=== PATIENT | female | born 1945 | race Caucasian/White ===

== ENCOUNTER 2016-12-05 20:50 | Observation (INO) ==
[2016-12-05] MEDS ORDERED: Aspirin 81 MG TAB.CHEW PO ONE (21:11)
--- NOTE | 2016-12-05 21:19 | Emergency Department Note ---
Disposition Clinical Impression: Chest pain Qualifiers: Chest pain type: unspecified Qualified Code(s): R07.9 - Chest pain, unspecified Disposition: Admitted As Inpatient Condition: Fair Time of Disposition: 23:34 Chest Pain HPI - General Chief Complaint: ED Shortness of Breath/Dyspnea Stated Complaint: osmar nausea chest pressure Time Seen by Provider: 12/05/16 21:11 Source: patient Vital Signs Reviewed: Yes Nursing Notes Reviewed: Yes - History of Present Illness HPI Narrative: 71-year-old female with history of CAD, status post stents 2008, presents with shortness of breath, nausea and left-sided tingling in her arm. Patient states that she has had these symptoms for the last hour. This started when she was at home resting. Patient states that she has had no ischemic workup for the last 8 years. She did not take nitroglycerin or aspirin today. She currently has shortness of breath. sHe denies recent fever chills cough Pt complaint: chest pain Onset (ago): minute(s) Duration: constant Onset: during rest Pain Location: left chest Severity scale (1-10): 7 Quality: aching, heaviness Pain Radiation: none Improves with: nothing Worsens with: nothing Associated symptoms: Reports: nausea, dyspnea Treatments prior to arrival chest pain: none - Related Data Home Medications Medication Instructions Recorded Confirmed Atorvastatin 03/20/15 03/20/15 Carvedilol 03/20/15 03/20/15 Isosorbide Mononitrate 03/20/15 03/20/15 Losartan 03/20/15 03/20/15 Plavix 03/20/15 03/20/15 Previous Rx's Medication Instructions Recorded Doxycycline 100 mg PO BID #20 capsule 03/20/15 Ciprofloxacin HCl [Cipro] 500 mg PO BID #20 tab 01/02/16 Hydrocodone/Acetaminophen [[place] 1 tab PO Q4H PRN #10 tab 01/02/16 5-325 Tablet] Ondansetron ODT [Zofran ODT] 4 mg SL Q4HR PRN #20 tab.rapdis 01/02/16 metroNIDAZOLE [Flagyl] 500 mg PO QID #40 tablet 01/02/16 Allergies Allergy/AdvReac Type Severity Reaction Status Date / Time Penicillins Allergy Hives Verified 03/27/15 15:40 Sulfa (Sulfonamide Allergy Hives Verified 03/27/15 15:40 Antibiotics) All systems ED: reviewed and negative except as stated. Constitutional: Denies: fever, chills, weakness Cardiovascular: Reports: as per HPI, chest pain Respiratory: Reports: as per HPI, dyspnea Gastrointestinal: Reports: as per HPI, nausea. Denies: abdominal pain Genitourinary: Denies: urgency, dysuria Musculoskeletal: Denies: back pain, neck pain Neurological: Denies: headache, weakness Psychiatric: Denies: anxiety Chest Pain PMH - Past Medical History Medical history: Reports: coronary artery disease, hyperlipidemia, hypertension Surgical history: Reports: cholecystectomy, , appendectomy Psychiatric history: Reports: anxiety, bipolar COUNSELING CENTER DIRECTOR history: Reports: no COUNSELING CENTER DIRECTOR history - Social History Smoking Status: Current every day smoker Alcohol use: Reports: occasionally Drug use: Reports: none Physical Exam Constitutional: Elderly female in mild distress, clutching her chest. appears uncomfortable HEENT: NCAT, sclera anicteric, PERRLA bilaterally, normal external ears bilaterally, nasal septum nondeviated, average dentition, MMM Neck: normal inspection, neck is supple, trachea midline Resp: normal chest inspection, CTA bilaterally, no resp distress CV: RRR, no m/g/r GI: normal inspection, Soft, NTND, BS presen Back: normal inspection, no tenderness to palpation Neuro: A&O3, no gross motor or sensory deficits bilaterally Skin: No rashes, skin warm, dry, intact - General General appearance: alert, in no apparent distress Course Course Narrative: 71-year-old female with chest pain shortness of breath, appears to be anginal, but high likelihood given hypertension hyperlipidemia and CAD with stents, her EKG is within normal limits we have a troponin chest x-ray basic lab work reassessed tried nitroglycerin for pain and 325 mg HEART SCORE 6. - Reevaluation(s) Reevaluation #1: Trop negative EKG no changes, with chest pain improved after nitroglycerin, admitted to medicine service in stable condition. Time: 23:34 Vital Signs Temperature 97.8 F 12/05/16 20:51 Pulse Rate 89 12/05/16 20:51 Respiratory Rate 18 12/05/16 20:51 Blood Pressure 116/62 12/05/16 20:51 O2 Sat by Pulse Oximetry 100 12/05/16 20:51 Temperature 97.8 F 12/05/16 20:51 Pulse Rate 76 12/05/16 22:55 Respiratory Rate 14 12/05/16 22:55 Blood Pressure 98/57 12/05/16 22:55 O2 Sat by Pulse Oximetry 95 12/05/16 22:55 Oxygen Delivery Oxygen Delivery Room Air Chest Pain - MDM Narrative Medical decision making narrative: 71-year-old female chest pain, relieved with nitroglycerin history of CAD, given the medicine service heart score of 6, stable condition at the time ED disposition - Differential Diagnosis Likely: pneumothorax, stable angina, unstable angina pectoris, atypical chest pain - Medical Records Medical records reviewed: Yes I reviewed the patient's medical records. - Lab Data Lab results reviewed: Yes I reviewed the patient's lab results. Result diagrams: 12/05/16 21:20 12/05/16 21:20 Lab Results 12/05/16 12/05/16 12/05/16 Range/Units 21:20 21:20 21:20 WBC 11.3 H (4.3-11.1) K/mcL RBC 4.42 (3.82-4.97) M/mcL Hgb 13.5 (11.5-15.4) g/dL Hct 41.7 (35.3-44.9) % MCV 94.3 (83.0-100.0) fL MCH 30.5 (28.0-33.3) pg MCHC 32.4 (31.6-35.5) g/dL RDW 13.0 (11.5-14.5) % Plt Count 283 (140-400) K/mcL MPV 11.6 (9.4-12.4) fL Immature Gran % 0.4 (0-4) % Seg Neutrophils % 58.0 % Lymphocytes % 30.2 % Monocytes % 8.4 % Eosinophils % 2.6 % Basophils % 0.4 % Neutrophils # 6.6 (1.6-8.9) K/mcL Lymphocytes # 3.4 (0.6-4.6) K/mcL Monocytes # 1.0 (0.0-1.3) K/mcL Eosinophils # 0.3 (0.0-0.6) K/mcL Basophils # 0.0 (0.0-0.2) K/mcL Immature Plt Fraction 6.2 H (1.1-6.1) % PT 10.3 (9.4-12.1) Seconds INR 1.0 APTT 29.3 (26.0-36.0) Seconds Sodium (136-145) mEq/L Potassium (3.5-4.5) mEq/L Chloride (98-109) mEq/L Carbon Dioxide (19-29) mEq/L BUN (7-20) mg/dL Creatinine (0.57-1.11) mg/dL Est GFR ( Amer) (> 60) Est GFR (Non-Af Amer) (> 60) BUN/Creatinine Ratio (6-26) Glucose (70-99) mg/dL Calculated Osmolality (280-300) Calcium (8.6-10.8) mg/dL Troponin I (0-0.03) ng/mL B-Natriuretic Peptide 71 (0-100) pg/mL 12/05/16 12/05/16 Range/Units 21:20 21:20 WBC (4.3-11.1) K/mcL RBC (3.82-4.97) M/mcL Hgb (11.5-15.4) g/dL Hct (35.3-44.9) % MCV (83.0-100.0) fL MCH (28.0-33.3) pg MCHC (31.6-35.5) g/dL RDW (11.5-14.5) % Plt Count (140-400) K/mcL MPV (9.4-12.4) fL Immature Gran % (0-4) % Seg Neutrophils % % Lymphocytes % % Monocytes % % Eosinophils % % Basophils % % Neutrophils # (1.6-8.9) K/mcL Lymphocytes # (0.6-4.6) K/mcL Monocytes # (0.0-1.3) K/mcL Eosinophils # (0.0-0.6) K/mcL Basophils # (0.0-0.2) K/mcL Immature Plt Fraction (1.1-6.1) % PT (9.4-12.1) Seconds INR APTT (26.0-36.0) Seconds Sodium 143 (136-145) mEq/L Potassium 3.6 (3.5-4.5) mEq/L Chloride 108 (98-109) mEq/L Carbon Dioxide 23 (19-29) mEq/L BUN 20 (7-20) mg/dL Creatinine 1.05 (0.57-1.11) mg/dL Est GFR ( Amer) > 60 (> 60) Est GFR (Non-Af Amer) 52 L (> 60) BUN/Creatinine Ratio 19 (6-26) Glucose 125 H (70-99) mg/dL Calculated Osmolality 300 (280-300) Calcium 9.8 (8.6-10.8) mg/dL Troponin I 0.00 (0-0.03) ng/mL B-Natriuretic Peptide (0-100) pg/mL - Radiology Data Radiology results reviewed: Yes I reviewed the patient's radiology results. Chest X-Ray 12/05/16 21:11 IMPRESSION: No acute abnormality. D/ / Rommel Baron / Rommel Baron Interpreting Provider: Rommel Baron - EKG Data EKG attestation: Yes I reviewed and interpreted this EKG. EKG shows normal: sinus rhythm Rate: normal (86 bpm [place] 156 QRS [address] segment elevations or depressions) Rhythm: NSR [place]/QRS: normal Interpretation: unchanged when compared to prior tracing (date) - Core Measures AMI Core Measures Followed: Yes Measure Exclusions: not indicated Heart Score - Score History: Moderately Suspicious EKG: Non Specific repolarisation Disturbance Age: Greater than 65 Risk Factors: Equal/Greater than 3 risk factor or history of atherosclerotic disease Troponin: Less than normal limit HEART Score Total: 6 Attestation Statement - Attestation Attestation: I, Hernan Martinez MD, personally evaluated this patient and discussed their management with the resident physician. I reviewed the resident's note and agree with the documented findings, medical decision making, and plan of care. 71-year-old female presents to the emergency department with a complaint of some vague left-sided chest discomfort which started about one hour prior to arrival. Onset of symptoms while at rest. She also complains of shortness of breath and nausea associated with the chest pain. Some numbness and tingling in the left arm. Patient has a prior history of coronary artery stent and states these symptoms feel the same as when she got the stent. On examination patient is a well-developed well-nourished well-appearing elderly female in no acute distress. She is alert and oriented 3. There is no cyanosis or diaphoresis. Chest is nontender to palpation. Breath sounds are clear and equal bilaterally. Heart regular rate and rhythm. Abdomen soft and nontender with normal bowel sounds. Labs reviewed. Troponin 0.00. No acute changes on EKG. Chest x-ray negative. The hospitalist, Dr. Sims, was consulted and accepted admission of the patient.
[2016-12-05 21:28] LABS: Basophils % 0.4 %; Eosinophils # 0.3 K/mcL (0.0-0.6); Eosinophils % 2.6 %; Hematocrit 41.7 % (35.3-44.9); Hemoglobin 13.5 g/dL (11.5-15.4); Immature Granulocytes % 0.4 % (0-4); Immature Platelets 6.2 % (1.1-6.1); Lymphocytes # 3.4 K/mcL (0.6-4.6); Lymphocytes % 30.2 %; Mean Corpuscular HGB Conc 32.4 g/dL (31.6-35.5); Mean Corpuscular Hemoglobin 30.5 pg (28.0-33.3); Mean Corpuscular Volume 94.3 fL (83.0-100.0); Mean Platelet Volume 11.6 fL (9.4-12.4); Monocytes % 8.4 %; Neutrophils # 6.6 K/mcL (1.6-8.9); Platelet Count 283 K/mcL (140-400); Red Blood Count 4.42 M/mcL (3.82-4.97)
[2016-12-05] MEDS: Nitroglycerin 0.4 MG TAB.SUBL SL ONE ×2 (21:31→21:41)
[2016-12-05 21:40] LABS: BUN/Creatinine Ratio 19 (6-26); Blood Urea Nitrogen 20 mg/dL (7-20); Calcium 9.8 mg/dL (8.6-10.8); Carbon Dioxide 23 mEq/L (19-29); Chloride 108 mEq/L (98-109); Glucose 125 mg/dL (70-99); Osmolality,Calculated 300 (280-300); Potassium 3.6 mEq/L (3.5-4.5); Sodium 143 mEq/L (136-145); eGFR For African Americans > 60 (> 60); eGFR For Non-African Americans 52 (> 60)
[2016-12-05 21:43] LABS: Prothrombin Time 10.3 Seconds (9.4-12.1)
[2016-12-05 21:46] LABS: Activated Partial Thrombo Time 29.3 Seconds (26.0-36.0)
[2016-12-06] MEDS ORDERED: Ondansetron 4 MG/2 ML VIAL IVP PRN (00:12)
[2016-12-06] MEDS ORDERED: Acetaminophen 325 MG TABLET PO PRN (00:12)
[2016-12-06] MEDS ORDERED: Naloxone 0.4 MG/ML INJ IVP PRN (00:12)
[2016-12-06] MEDS ORDERED: Nitroglycerin 0.4 MG TAB.SUBL SL PRN (00:14)
--- NOTE | 2016-12-06 01:38 | Internal Med History&Physical ---
Date of Encounter: 12/06/16 Time of Encounter: 01:36 Assessment and Plan (1) Chest pain Current visit: Yes Status: Acute Patient has chest pressure that is heaviness in sensation on the left side of her chest in the precordial region with tingling and numbness in her left arm that happened at rest and resolved by itself. It was associated with nausea and shortness of breath. She has a history of coronary artery disease which was found with a negative stress test and subsequent left heart catheterization which required placement of a stent in 2008. The patient continues to smoke cigarettes. Reproducible tenderness in the midline but not in the precordial region. Pain resolved with nitroglycerin. EKG does not reveal any ST-T wave changes. Troponin has been negative. Patient will be placed under observation on telemetry. Cycle cardiac enzymes. Will request cardiology consult to evaluate the patient regarding further course of management. Nitroglycerin sublingual as needed for chest pain. Qualifiers: Chest pain type: precordial pain Qualified Code(s): R07.2 - Precordial pain (2) CAD (coronary artery disease) Current visit: Yes Status: Chronic As above. Resume aspirin, Plavix, statin and beta gena. Patient follows up with cardiology as an outpatient. Qualifiers: Coronary Disease-Associated Artery/Lesion type: [place] artery [place] vs. transplanted heart: [place] heart Associated angina: without angina Qualified Code(s): I25.10 - Atherosclerotic heart disease of [place] coronary artery without angina pectoris (3) HTN (hypertension) Current visit: Yes Status: Chronic Controlled blood pressure. Continue home medications. Qualifiers: Hypertension type: essential hypertension Qualified Code(s): I10 - Essential (primary) hypertension (4) Tobacco abuse Current visit: Yes Status: Chronic Patient counseled at length regarding the need for smoking cessation. She states that she is willing to quit and is currently actively working towards the same. Internal Medicine - H&P: HPI Chief complaint: Chest pressure Admitted From: Emergency Dept Plans for Post Hospital Care: Home History of present illness: Ms. Romel Ruby is a 71 year old female presented to the emergency room due to sudden onset chest pressure that happened last night at 9 PM as the patient was getting ready to go to sleep. She rates the pain as 8/10 in intensity on the left side of her chest which is a sensation of heaviness. She also reports associated tingling and numbness in her left hand. No aggravating factors although the pain was relieved with nitroglycerin. The pain persisted for 5-10 minutes and resolved by itself. The pain was associated with shortness of breath, nausea and lightheadedness. She denies any palpitations, sweating, cough or wheezing. She denies any abdominal pain, diarrhea, constipation. She denies any swelling in her legs, rash or bruising. She states that she continues to smoke 5-10 cigarettes daily. She is followed by Dr. Lopez from cardiology whom she last saw 2 weeks ago. Her last stress test was 2 years ago. She denies any recent appetite changes or weight changes. Past Med Surg Social Fam HX - Past Medical History Attestation: Yes The following information was validated with the patient. Source: patient Medical history: coronary artery disease, hyperlipidemia, hypertension Psychiatric history: anxiety, bipolar - Past Surgical History Surgical History: cholecystectomy, , appendectomy - Social History Smoking Status: Current every day smoker Packs per day: 1 Smokeless Tobacco Status: No Alcohol use: occasionally Drug use: none - Family History Maternal Grandmother Hx Family Cardiac Disorders: No Hx Family Respiratory Disorders: No Hx Family Cancer: No Hx Family GI Disorders: No Hx Family Genitourinary Disorders: No Hx Family Endocrine Disorder: Yes (DM) Hx Family Musculoskeletal Disorders: No Hx Family Neuromuscular Disorders: No Hx Family Neurologic Disorders: No Hx Family HEENT Disorders: No Hx Family Autoimmune Disorders: No Hx Family Reproductive Disorders: No Hx Family Psychosocial Disorders: No Hx Family Medical Disorders: No Internal Medicine - H&P: Meds Atorvastatin 03/20/15 [History] Carvedilol 03/20/15 [History] Doxycycline 100 mg PO BID #20 capsule 03/20/15 [Rx] Isosorbide Mononitrate 03/20/15 [History] Losartan 03/20/15 [History] Plavix 03/20/15 [History] Ciprofloxacin HCl [Cipro] 500 mg PO BID #20 tab 01/02/16 [Rx] Hydrocodone/Acetaminophen [[place] 5-325 Tablet] 1 tab PO Q4H PRN #10 tab [Rx] Ondansetron ODT [Zofran ODT] 4 mg SL Q4HR PRN #20 tab.rapdis 01/02/16 [Rx] metroNIDAZOLE [Flagyl] 500 mg PO QID #40 tablet 01/02/16 [Rx] Allergies Penicillins Allergy (Verified 03/27/15 15:40) Hives Sulfa (Sulfonamide Antibiotics) Allergy (Verified 03/27/15 15:40) Hives All Systems PM: A 10-system review of systems was performed and is negative for pertinent findings except as documented above in the HPI. Review of systems: 10 systems reviewed and negative except as mentioned in the HPI - Constitutional Vitals: Temp Pulse Resp BP Pulse Ox 98.2 F 73 18 98/55 96 12/06/16 00:45 12/06/16 00:45 12/06/16 00:45 12/06/16 00:45 12/06/16 00:45 Exam: Gen.: Lying in bed. No acute distress. Eyes: Pupils equal, round and reactive to light. Extraocular muscles intact. ENT: Moist mucous membranes. No oropharyngeal erythema or discharge. Chest: Clear to auscultation bilaterally. No adventitious sounds present. Reproducible chest wall tenderness present in the midline. No precordial chest wall tenderness. CVS: First and second heart sounds present. No murmurs, rubs or gallops. Abdomen: Soft, nontender, nondistended. Bowel sounds present. No hepatosplenomegaly. Skin: No decubitus ulcers appreciated. PEDIATRIC PHYSICAL THERAPY ASSISTANT: No focal neuro deficits present. Psychiatric: Alert, awake and oriented to time, place and person. Lymphatic system: No lymphadenopathy appreciated Internal Med - H&P Results - Labs CBC & Chem 7: 12/05/16 21:20 12/05/16 21:20 - EKG Data -: EKG Interpreted by Myself EKG shows normal: sinus rhythm Rate: normal - EKG Data Prior EKG available for review: yes When compared to previous EKG: there is no significant change - Diagnostic Studies Chest x-ray Status: image reviewed by me (No acute abnormalities detected)
[2016-12-06] MEDS ORDERED: Aspirin Enteric Coated 81 MG Tablet PO SCH (09:00)
--- NOTE | 2016-12-06 12:02 | Electrocardiograph Report ---
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
[2016-12-06 12:42] VITALS: BP 93/59
--- NOTE | 2016-12-06 13:17 | Event Note ---
Date of Encounter: 12/06/16 Time of Encounter: 13:10 - Cardiology Event Note I went to room to see patient for evaluation of CP. Negative ST 03/2015. Per RN , patient left AMA. Unable to complete consult. Laboratory Tests 12/05/16 12/06/16 12/06/16 21:20 01:02 04:51 Troponin I 0.00 0.01 0.00
--- NOTE | 2016-12-06 14:57 | Event Note ---
Date of Encounter: 12/06/16 Time of Encounter: 10:50 Patient was seen and examined about 10:55 AM. She appeared to be agitated when I spoke with her. I was standing near the window she was lying in a position facing the window, however was hidden under the blankets and did not open her eyes. She said she is sick of repeating her story and is sick of waiting. She reports midsternal chest pressure, shortness of breath, nausea, radiation to left shoulder with left arm numbness. It started while at rest. She said she arrived at the emergency room at about 12:30 AM, it had started approximately 30 minutes prior to arrival. She said it was relieved with nitroglycerin and aspirin in the emergency department and she has been pain- free since that time. She has a history of coronary artery stent 2008, 1 other episode of chest pain like this in 2014. She was not seen at that time. I told patient I would attempt to expedite her visit and asked that I could do to make it better for her. She said she just wanted to go outside and smoke a cigarette. I told her that I could not authorize that, but I did tell her that I would speak with cardiology, and we would try to get her a meal tray since she had not eaten since before coming to the emergency department last night. At some point, she was told that she would have a stress test, she was upset when it had not been ordered and that a cardiology consult has been ordered instead. Cardiology and I had discussed her case, he was preparing to see her when I was informed that she was going to leave AMA. Her physical exam was unremarkable, chest x-ray was negative, troponins were negative. EKG was negative for any ST changes.
== END 2016-12-06 13:07 | disposition left against medical advice (07) ==
LOC: 3BNU 20:50 → EMEROO 20:50 → 3BNU 12-06 00:35
PROVIDERS: ADMIT Internal Medicine Sleep Medicine; ATTEND Registered Nurse

== ENCOUNTER 2017-02-25 08:40 | Inpatient (IN) ==
--- NOTE | 2017-02-24 21:45 | Discharge Summary ---
<Marycarmen Philippe - Last Filed: 02/24/17 21:41> Date of Encounter: 02/24/17 - Discharge Diagnosis (1) Arthritis of knee, left Priority: Primary Status: Acute (2) Status post total knee replacement, left Priority: Primary Status: Acute (3) CAD (coronary artery disease) Priority: Secondary Status: Chronic Qualifiers: Coronary Disease-Associated Artery/Lesion type: unspecified vessel or lesion type [place] vs. transplanted heart: [place] heart Associated angina: without angina Qualified Code(s): I25.10 - Atherosclerotic heart disease of [place] coronary artery without angina pectoris (4) Tobacco use Priority: Secondary Status: Chronic (5) HTN (hypertension) Priority: Secondary Status: Chronic Qualifiers: Hypertension type: essential hypertension - Discharge Medications Home Medications: Alendronate Sodium [Fosamax] 70 mg PO [place] 12/06/16 [History] Atorvastatin [Lipitor] 10 mg PO DAILY 12/06/16 [History] Carvedilol [Coreg] 6.25 mg PO BID 12/06/16 [History] Clopidogrel [Plavix] 75 mg PO DAILY 12/06/16 [History] Diltiazem HCl [Diltiazem ER] 120 mg PO DAILY 12/06/16 [History] Isosorbide MONOnitrate (24 HR) [Imdur] 30 mg PO DAILY 12/06/16 [History] Multivit-Min/Iron/Folic/Lutein [Centrum Silver Women Tablet] 1 each PO DAILY [History] Aspirin Enteric Coated [Aspirin EC] 325 mg PO DAILY #21 tablet. 02/24/17 [Rx] Aspirin [Lo-Dose Aspirin EC] 81 mg PO DAILY 02/25/17 [History] Losartan Potassium [Cozaar] 100 mg PO DAILY 02/25/17 [History] Allergies/Adverse Reactions: 3 Allergy/AdvReac Type Severity Reaction Status Date / Time Penicillins Allergy Hives Verified 02/25/17 09:37 Sulfa (Sulfonamide Allergy Hives Verified 02/25/17 09:37 Antibiotics) Oxycodone [From Percocet] AdvReac SEE COMMENT Verified 02/25/17 09:37 propoxyphene AdvReac SEE COMMENT Verified 02/25/17 09:37 [From Ileana] Primary care physician: Ramiro Gillette CNP - Patient Status Disposition: Home Health Service Condition: Good - Discharge Instructions Follow Up With: Ramiro Gillette CNP [Primary Care Provider] - - Hospital Course Hospital course: Ms. Romel Ruby is a 71 year old female - Time Spent with Patient Total time spent providing and/or coordinating discharge services: <RicardoMichelepraveena Shieldsh - Last Filed: 02/26/17 06:25> Date of Encounter: 02/26/17 Time of Encounter: 06:24 - Discharge Diagnosis (1) CAD (coronary artery disease) Priority: Secondary Status: Chronic Qualifiers: Coronary Disease-Associated Artery/Lesion type: [place] artery [place] vs. transplanted heart: [place] heart Associated angina: without angina Qualified Code(s): I25.10 - Atherosclerotic heart disease of [place] coronary artery without angina pectoris (2) HTN (hypertension) Priority: Secondary Status: Chronic Qualifiers: Hypertension type: unspecified Qualified Code(s): I10 - Essential (primary ) hypertension (3) Tobacco abuse Priority: Secondary Status: Chronic (4) Arthritis of knee, left Priority: Primary Status: Chronic (5) Status post total knee replacement, left Priority: Primary Status: Acute (6) CAD (coronary artery disease) Priority: Secondary Status: Chronic Qualifiers: Coronary Disease-Associated Artery/Lesion type: unspecified vessel or lesion type [place] vs. transplanted heart: [place] heart Associated angina: without angina Qualified Code(s): I25.10 - Atherosclerotic heart disease of [place] coronary artery without angina pectoris Primary care physician: Ramiro Gillette CNP - Patient Status Functional capacity at discharge: uses cane/walker Overall status at discharge: patient is progressing back to baseline - Hospital Course Hospital course: Ms. Romel Ruby is a 71 year old female The patient had an uneventful postoperative course. They received antibiotics and physical therapy and were discharged in stable condition. There will follow -up in the office in 2 weeks. Status post left total knee replacement - Time Spent with Patient Total time spent providing and/or coordinating discharge services:
--- NOTE | 2017-02-24 21:50 | Physician Discharge Referral ---
<Marycarmen Philippe - Last Filed: 02/24/17 21:48> Home Health/Hosp Referral Info Transfer to: Home Health Provider in Charge Post Discharge: PCP - Diagnosis (1) Arthritis of knee, left Priority: Primary Status: Acute (2) Status post total knee replacement, left Priority: Primary Status: Acute (3) CAD (coronary artery disease) Priority: Secondary Status: Chronic (4) Tobacco use Priority: Secondary Status: Chronic (5) HTN (hypertension) Priority: Secondary Status: Chronic - Respiratory Orders None Smoking Cessation: Smoking cessation has been advised. For more information, call the [place] Tobacco Quit Line at 6-529-PLFM-NOW. - Dressing/Wound Care Type of Dressing/Treatments w/Frequency: Opsite dressing, leave intact until first post-operative visit. If dressing becomes >50% saturated, contact office, remove dressing and place appropriate dressing in its place. Do not allow for dressing to get wet. Balaji in place, plan to remove at post-operative day #14-16. Total Joint Precautions x 6 weeks Apply cold therapy wrap 3-6x/day for 20 minutes at a time. Encourage ambulation throughout the day Use Incentive spirometer 10x/hour. Elevate affected extremity above heart as tolerated. Brace: Wear knee immobilizer at night x 2 weeks. - Diet/Nutrition Diet/Nutrition Orders: Regular - Activity Activity Orders: Up ad bethany, Ambulate - Services Needed Following services are medically necessary services: Nursing, Home Health Aide, Physical Therapy, Occupational Therapy - Transfer Medications Home Medications: Alendronate Sodium [Fosamax] 70 mg PO HILTON 12/06/16 [History] Atorvastatin [Lipitor] 10 mg PO DAILY 12/06/16 [History] Carvedilol [Coreg] 6.25 mg PO BID 12/06/16 [History] Clopidogrel [Plavix] 75 mg PO DAILY 12/06/16 [History] Diltiazem HCl [Diltiazem ER] 120 mg PO DAILY 12/06/16 [History] Isosorbide MONOnitrate (24 HR) [Imdur] 30 mg PO DAILY 12/06/16 [History] Multivit-Min/Iron/Folic/Lutein [Centrum Silver Women Tablet] 1 each PO DAILY [History] Aspirin Enteric Coated [Aspirin EC] 325 mg PO DAILY #21 tablet. 02/24/17 [Rx] Aspirin [Lo-Dose Aspirin EC] 81 mg PO DAILY 02/25/17 [History] Losartan Potassium [Cozaar] 100 mg PO DAILY 02/25/17 [History] Allergies/Adverse Reactions: 3 Allergy/AdvReac Type Severity Reaction Status Date / Time Penicillins Allergy Hives Verified 02/25/17 09:37 Sulfa (Sulfonamide Allergy Hives Verified 02/25/17 09:37 Antibiotics) Oxycodone [From Percocet] AdvReac SEE COMMENT Verified 02/25/17 09:37 propoxyphene AdvReac SEE COMMENT Verified 02/25/17 09:37 [From Darvocet-N] Certification: Further, I certify that my clinical findings support that this patient is homebound (i.e. absences from home require considerable and taxing effort and are for medical reasons or hindu services or infrequently or short duration when for other reasons) because: Homebound Reason: Post-surgery restriction and or conditions limit ability to leave home Attestation: My signature below is to certify that this patient is under my care and that I, or nurse practitioner, or a physician's drilling assistant working with me, has a face-to -face encounter with this patient. <Michele Silva - Last Filed: 02/26/17 06:24> - Diagnosis (1) CAD (coronary artery disease) Status: Chronic (2) HTN (hypertension) Status: Chronic (3) Tobacco abuse Status: Chronic (4) Arthritis of knee, left Status: Chronic (5) Status post total knee replacement, left Status: Acute (6) CAD (coronary artery disease) Status: Chronic - Respiratory Orders Smoking Cessation: Smoking cessation has been advised. For more information, call the [place] Tobacco Quit Line at 3-459-JESI-NOW. Certification: Further, I certify that my clinical findings support that this patient is homebound (i.e. absences from home require considerable and taxing effort and are for medical reasons or hindu services or infrequently or short duration when for other reasons) because: Attestation: My signature below is to certify that this patient is under my care and that I, or nurse practitioner, or a physician's drilling assistant working with me, has a face-to -face encounter with this patient.
[2017-02-25] MEDS ORDERED: Gabapentin 300 MG CAPSULE PO ONE (09:05)
[2017-02-25] MEDS ORDERED: Famotidine 20 MG/2 ML VIAL IVP ONE (09:05)
[2017-02-25] MEDS ORDERED: Ringers Solution, Lactated 1,000 ML IVC SCH ×2 (09:15→12:49)
--- NOTE | 2017-02-25 09:15 | History & Physical Report ---
Date of Encounter: 02/25/17 Time of Encounter: 09:15 24 Hour HP Update - Instructions Instructions: If the History and Physical is less than 30 days old and was completed prior to A.M. admission and or procedure and has NOT been updated on calendar day of procedure please complete this update prior to performing procedure. - Update Patient reports changes in Medical Condition: No Changes in examination, assessment, or condition: No Changes in Medication: No Preop tests/diagnostics Reviewed: Yes Surgery Remains Indicated: Yes Consent for Planned Operative Procedure(s) Verified: Yes - Pre-Operative Checklist Preoperative Checklist Indicated: No Prophylactic Antibiotic Ordered: Yes Is VTE Prophylaxis Indicated?: Yes
[2017-02-25] MEDS ORDERED: Clindamycin 900 MG/50 ML 900 MG/50 ML IV.SOLN IVPB ONE (09:18)
[2017-02-25] MEDS ORDERED: Albuterol 2.5 MG/3 ML NEBULIZER IH ONE (09:18)
[2017-02-25] MEDS ORDERED: *HR* FentaNYL (PF) 100 MCG/2 ML VIAL ONE (09:38)
[2017-02-25] MEDS ORDERED: *HR* Midazolam HCl 2 MG/2 ML VIAL ONE (09:38)
[2017-02-25] MEDS ORDERED: Ondansetron 4 MG/2 ML VIAL ONE (09:38)
[2017-02-25] MEDS ORDERED: *HR* Propofol 200 MG/20 ML VIAL IVP ONE (09:38)
[2017-02-25] MEDS ORDERED: Dexamethasone 4 MG/ML VIAL ONE ×2 (09:38→10:14)
--- NOTE | 2017-02-25 09:46 | Anesthesia Evaluation PreOp ---
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 History: Denies Any Significant HX Other Medical History: Denies Any Significant HX Anesthesia History: No Prior Anesthetic Complications : No Alcohol Use: occasionally Drug use: none Medications and Allergies Alendronate Sodium [Fosamax] 70 mg PO HILTON 12/06/16 [History] Atorvastatin [Lipitor] 10 mg PO DAILY 12/06/16 [History] Carvedilol [Coreg] 6.25 mg PO BID 12/06/16 [History] Clopidogrel [Plavix] 75 mg PO DAILY 12/06/16 [History] Diltiazem HCl [Diltiazem ER] 120 mg PO DAILY 12/06/16 [History] Isosorbide MONOnitrate (24 HR) [Imdur] 30 mg PO DAILY 12/06/16 [History] Multivit-Min/Iron/Folic/Lutein [Centrum Silver Women Tablet] 1 each PO DAILY [History] Aspirin Enteric Coated [Aspirin EC] 325 mg PO DAILY #21 tablet. 02/24/17 [Rx] OxyCODONE Immed Rel [Roxicodone 5 MG] 5 - 10 mg PO Q6HR PRN #40 tablet 02/24/17 [Rx] Aspirin [Lo-Dose Aspirin EC] 81 mg PO DAILY 02/25/17 [History] Losartan Potassium [Cozaar] 100 mg PO DAILY 02/25/17 [History] 3 Allergy/AdvReac Type Severity Reaction Status Date / Time Penicillins Allergy Hives Verified 02/25/17 09:37 Sulfa (Sulfonamide Allergy Hives Verified 02/25/17 09:37 Antibiotics) Oxycodone [From Percocet] AdvReac SEE COMMENT Verified 02/25/17 09:37 propoxyphene AdvReac SEE COMMENT Verified 02/25/17 09:37 [From Darvocet-N] - Meds/Allergy Pre-op Review Medications Reviewed: Yes Allergies Reviewed: Yes Beta Blockers on Current Med List: Yes (Took Coreg today 0800) Anesthesia Results - Labs Laboratory Tests 02/06/17 02/06/17 13:58 13:58 Hgb 13.4 Hct 43.2 Plt Count 255 Sodium 141 Potassium 4.8 H BUN 19 Creatinine 0.93 - Imaging EKG: report reviewed (SR) Additional studies: Stress Test Negative EF 70% Anesthesia Exam O2 Sat Height 1.57 m Height 1.57 m Weight 66.678 kg Weight 66.678 kg O2 Sat by Pulse Oximetry 100 Vital Signs Temp Pulse Resp BP Pulse Ox 97.1 F L 75 18 104/62 100 02/25/17 09:22 02/25/17 09:22 02/25/17 09:22 02/25/17 09:22 02/25/17 09:22 Height: 5'2 Weight: 147 lbs NPO (# of Hours): MN Pain Scale: 0 - HEENT Pupil (Motor): Pupils equal, EOMI Mallampati: II Teeth: Normal Oral Opening: Greater than 3 - MILL DRESSER LOC: Oriented MILL DRESSER Motor: Normal RUE, Normal LUE, Normal RLE, Normal LLE, Normal Face MILL DRESSER Sensory: Normal: RUE, LUE, RLE, LLE, Face - Cardiac Rhythm: Regular Murmur: None JVD: No Carotid Bruit: No - Pulmonary Breath Sounds: bilateral Clear Respiratory Effort: Symmetrical Anesthesia Assess/Plan ASA Score: 3 (CAD HTN Tobacco) Modified [place] Scale for Level of Consciousness: Cooperative, oriented, and tranquil Anesthetic Plan: General, Regional Monitoring Plan: Standard Monitors Recovery Plan: PACU (Discussed GA and RA, agrees to proceed)
[2017-02-25] MEDS ORDERED: Ondansetron 4 MG/2 ML VIAL IVP PRN ×2 (09:48→12:49)
[2017-02-25] MEDS ORDERED: *HR* HYDROmorphone (PF) 1 MG/ML SYRINGE IVP PRN (09:48)
[2017-02-25] MEDS ORDERED: *HR* Meperidine 25 MG/ML SYRINGE IVP PRN (09:48)
[2017-02-25] MEDS ORDERED: Naloxone 0.4 MG/ML INJ IVP PRN ×2 (09:48→12:49)
[2017-02-25] MEDS ORDERED: Bupivacaine-MPF 0.25% 10 ML VIAL ONE (10:01)
[2017-02-25] MEDS ORDERED: Lidocaine -MPF 2% 5 ML VIAL ONE (10:01)
[2017-02-25] MEDS ORDERED: Tetracaine/PF 20 MG/2 ML AMPUL ONE (10:02)
--- NOTE | 2017-02-25 10:39 | Anesthesia Procedures ---
Date of Encounter: 02/25/17 Time of Encounter: 09:45 Procedures: Anesthesia - Nerve Block Procedure Date: 02/25/17 Time: 10:20 Pre-op Diagnosis: Left Knee OA Surgical Procedure: Left TKA Checklist: Correct Patient Identifier Correct side: Left Blood Thinner: Yes (Plavix) Monitor Applied: EKG, BP, Pulse Oximetry Supplemental Oxygen via Nasal Cannula (L/min): 2 Sedation: Versed (mg): 2 Sedation: Fentanyl (mcg): 100 Indication: Post Op Analgesia Pre-op Neuro Deficits: No Block Type: Femoral, Other (Sciatic) Catheter placed: No Depth at skin (cm): 2 Sterile Technique: Yes Ultrasound used: Yes Anatomy identified: Yes Visual spread of Local: Yes Neuro Stimulation: Yes Nerve Stimulator Range: >0.4 - 0.6 mA Blood on Needle Aspiration: No Smooth Injection of Local: Yes Pain with Injection of Local: No Prep: Chlorhexadine Needle: 22 x 50 mm Stimuplex Local: Tetracaine (40), Other (Bupivacaine 0.5%, Dexamethasone 4 mg) Volume (cc): 40cc Fem, 20cc Scia 0.2% Number of Attempts: 1 Complications: None/effective block Vitals: Vital Signs/O2 Sat/Glucose, Most Current Temp Pulse Resp BP Pulse Ox 02/25/17 10:25 76 15 109/72 96 02/25/17 09:22 97.1 F L 75 18 104/62 100
[2017-02-25] MEDS ORDERED: *HR* Phenylephrine 10 MG/ML VIAL ONE (10:45)
[2017-02-25] MEDS ORDERED: EPHEDrine 50 MG/ML VIAL ONE (11:09)
--- NOTE | 2017-02-25 11:16 | Orthopedic Operative Note ---
Date of procedure: 02/25/17 Pre-op diagnosis: Left knee arthritis Post-op diagnosis: same Procedure: Procedure: Left Total knee replacement Estimated blood loss: 200 cc Hardware: Metal and polyethylene replacement. Arthrex Femur: 4 Tibia:3 PS insert: 10 Patella:37 Exam Under anesthesia: Full flexion and extension no varus valgus instability. Procedural Notes: Grade 4 arthritic changes medial and lateral compartment, grade 3 arthritic changes patellofemoral joint. Operative procedure: The patient was brought to the operating room and placed on the operating room table. After general anesthesia was administered the operative knee was examined. Findings were noted in the exam under anesthesia. The operative extremity was prepped and draped in sterile surgical fashion. The patient received IV antibiotics prior to skin incision. A standard midline incision was made centered over the patella. The incision was made through the skin and subcutaneous tissue. A medial parapatellar tendon approach was performed. Care was taken to preserve tissue along the medial aspect of the patella. And to protect the patella tendon. The deep MCL was released off the medial tibia. The infra patella fat pad was excised. Knee was brought into flexion. Grade 4 arthritic changes medial and lateral compartment, grade 3 arthritic changes patellofemoral joint. The entry hole was made for the intramedullary femoral guide. The guide was seated in 6 degrees of valgus. Anterior cut was made followed by the distal cut. The ACL the PCL the medial and the lateral menisci were excised. The tibia was subluxed forward. The entry hole was made for the intramedullary tibial guide. Guide was seated to resect 2 mm off the more abnormal side. The knee was brought into flexion the distal femur was sized to a 4. The femoral guide was seated, the anterior cut was made followed by the posterior condylar cut, followed by the chamfer cuts. The finishing guide was seated the box cut was made and the lug holes were drilled. The tibia was sized to a 3, the tibial tray was seated and prepared with the large drill followed by the fin cutter. Trial reduction revealed full extension no varus valgus instability with the appropriate 10 PS Margret. The patella was everted and cut was made at the level of the insertion of the quadriceps and patella tendon. The patella was too a 37 sized the guide was seated and the lug holes are drilled. Trial reduction revealed excellent patella tracking. All trial components were removed all bony surfaces were irrigated. The tibia was cemented first followed by the femur. The 10 PS Margret was seated and the knee was brought into full extension. The patella was cemented and held in place with the patellar holding clamp. After the cement had hardened, the knee sat for 2 minutes with a Betadine saline solution. The knee was then irrigated out with 2 L of pulse irrigation. The knee was closed by the PA. The extensor mechanism was closed with #2 FiberWire suture and #2 PDS suture. The subcutaneous tissue was then irrigated and closed deep with #1 PDS suture superficially with 0 PDS suture and skin was closed with skin heather. The patient was then placed in a sterile dressing and a postoperative brace extubated and transferred to recovery room in stable condition. Anesthesia: ONUR Surgeon: Michele Silva [employer]: Marycarmen Philippe Condition: stable Disposition: PACU
[2017-02-25 12:05] LABS: Hemoglobin 11.3 g/dL (11.5-15.4)
--- NOTE | 2017-02-25 12:27 | Anesthesia Evaluation Post Op ---
Date of Encounter: 02/25/17 Time of Encounter: 12:10 - Vital Signs Vital Signs: Vital Signs/O2 Sat/Glucose, Most Current Temp Pulse Resp BP Pulse Ox 02/25/17 12:06 98.1 F 77 11 103/55 99 02/25/17 11:56 71 18 103/51 97 02/25/17 11:46 75 12 106/48 99 02/25/17 11:36 98.3 F 83 16 104/52 99 02/25/17 10:25 76 15 109/72 96 02/25/17 09:22 97.1 F L 75 18 104/62 100 - Lungs Lungs: Clear Ascult./Percussion - Airway Airway: Non-obstructed - Cardiovascular Regular Rate - Mental Status Mental Status: Alert & Oriented, Answers Appropriately - Pain Pain Scale: 0 - Nausea Vomiting Nausea Vomiting: Not Present - Hydration Hydration: Ice chips - Discharge PostOp Status: Transfer Patient to floor
[2017-02-25] MEDS ORDERED: traMADol 50 MG TABLET PO PRN (12:49)
[2017-02-25] MEDS ORDERED: MOM Conc 10 ML UD.LIQ PO PRN (12:49)
[2017-02-25] MEDS ORDERED: Sennosides 8.6 MG TABLET PO PRN (12:49)
[2017-02-25] MEDS ORDERED: Temazepam 15 MG CAPSULE PO PRN (12:49)
[2017-02-25] MEDS: Clindamycin 900 MG/50 ML 900 MG/50 ML IV.SOLN IVPB SCH (16:17)
[2017-02-25] MEDS: *HR* Enoxaparin 30 MG/0.3 ML SYRINGE SQ SCH (16:18)
[2017-02-25] MEDS ORDERED: *HR* Enoxaparin 30 MG/0.3 ML SYRINGE SQ SCH (18:00)
[2017-02-26] MEDS: Clindamycin 900 MG/50 ML 900 MG/50 ML IV.SOLN IVPB SCH (00:13)
[2017-02-26] MEDS: *HR* HYDROcodone/Acet 5/325 mg TABLET PO PRN ×2 (00:13→08:03)
[2017-02-26] MEDS: *HR* HYDROmorphone (PF) 1 MG/ML SYRINGE IVP PRN ×2 (03:50→10:38)
[2017-02-26 06:18] LABS: Hematocrit 32.9 % (35.3-44.9); Hemoglobin 10.3 g/dL (11.5-15.4)
--- NOTE | 2017-02-26 06:25 | Orthopedics Progress Note ---
Date of Encounter: 02/26/17 Time of Encounter: 06:25 - Assessment and Plan (1) CAD (coronary artery disease) Current Visit: No Status: Chronic Qualifiers: Coronary Disease-Associated Artery/Lesion type: [place] artery [place] vs. transplanted heart: [place] heart Associated angina: without angina Qualified Code(s): I25.10 - Atherosclerotic heart disease of [place] coronary artery without angina pectoris (2) HTN (hypertension) Current Visit: No Status: Chronic Qualifiers: Hypertension type: unspecified Qualified Code(s): I10 - Essential (primary ) hypertension (3) Tobacco abuse Current Visit: No Status: Chronic (4) Arthritis of knee, left Current Visit: Yes Status: Chronic (5) Status post total knee replacement, left Current Visit: Yes Status: Acute (6) CAD (coronary artery disease) Current Visit: Yes Status: Chronic Qualifiers: Coronary Disease-Associated Artery/Lesion type: unspecified vessel or lesion type [place] vs. transplanted heart: [place] heart Associated angina: without angina Qualified Code(s): I25.10 - Atherosclerotic heart disease of [place] coronary artery without angina pectoris Subjective Interval history: Patient was seen this morning doing well without complaints. Afebrile vital signs stable. Operative extremity: Neurovascularly intact Dressing clean dry and intact Calves nontender Assessment and plan: Continue with postoperative care Discharge today Objective Vital signs: Vital Signs Temp Pulse Resp BP Pulse Ox 02/26/17 04:36 97.4 F L 72 16 96/59 96 02/25/17 23:15 97.8 F 86 18 121/66 97 02/25/17 18:47 97.8 F 70 16 103/56 100 02/25/17 15:57 97.7 F 73 16 93/54 99 02/25/17 15:11 97.7 F 68 16 113/77 98 02/25/17 13:37 98.1 F 74 14 106/67 98 02/25/17 13:08 70 02/25/17 13:05 97.6 F 70 16 104/68 98 02/25/17 12:40 97.1 F L 68 16 95/51 96 02/25/17 12:06 98.1 F 77 11 103/55 99 02/25/17 11:56 71 18 103/51 97 02/25/17 11:46 75 12 106/48 99 02/25/17 11:36 98.3 F 83 16 104/52 99 02/25/17 10:25 76 15 109/72 96 02/25/17 09:22 97.1 F L 75 18 104/62 100 Intake and Output 02/25/17 02/25/17 02/26/17 15:59 23:59 07:59 Intake Total 100 / 100 1690 / 1690 1000 / 1000 Output Total 200 / 200 0 / 0 Balance -100 / -100 1690 / 1690 1000 / 1000 Intake: IV Fluids 1100 / 1100 1000 / 1000 Lactated Ringers 1,000 ML 1000 / 1000 1000 / 1000 @ 75 mls/hr IVC .[id number] JENNIFER Rx#:[id number] Cleocin Premix 900 MG/50 100 / 100 ML 900 mg In 50 ml @ 50 mls/hr IVPB Q8HR JENNIFER Rx#: [id number] Oral 100 / 100 590 / 590 Output: Urine 0 / 0 0 / 0 Estimated Blood Loss 200 / 200 Other: # Voids 1 Weight 66.678 kg 74.9 kg Patient Weight 02/26/17 23:59 Weight 74.9 kg - Labs CBC & BMP: 02/26/17 05:50 Labs: Abnormal lab results Hgb 10.3 g/dL (11.5-15.4) L 02/26/17 05:50 Hct 32.9 % (35.3-44.9) L 02/26/17 05:50 - VTE Documentation of Mechanical Device: Venous foot pump, device Consult Discharge Plan - Plan Referrals: Ramiro Gillette, PARTS AND SERVICE MANAGER [Primary Care Provider] -
[2017-02-26] MEDS: *HR* Enoxaparin 30 MG/0.3 ML SYRINGE SQ SCH (06:26)
[2017-02-26 06:28] LABS: BUN/Creatinine Ratio 29 (6-26); Blood Urea Nitrogen 27 mg/dL (7-20); Calcium 8.7 mg/dL (8.6-10.8); Carbon Dioxide 22 mEq/L (19-29); Chloride 108 mEq/L (98-109); Glucose 131 mg/dL (70-99); Osmolality,Calculated 289 (280-300); Potassium 5.6 mEq/L (3.5-4.5); Sodium 136 mEq/L (136-145); eGFR For African Americans > 60 (> 60); eGFR For Non-African Americans > 60 (> 60)
[2017-02-26] MEDS: Diltiazem CD (24hr) 120 MG CAPSULE PO SCH (08:04)
[2017-02-26] MEDS: Isosorbide MONOnitrate (24 HR) 30 MG TAB.ER.24H PO SCH (08:04)
[2017-02-26] MEDS: Aspirin Enteric Coated 81 MG Tablet PO SCH (08:04)
[2017-02-26] MEDS: Multivit/Ca/Min/Fe/FA 1 TAB TABLET PO SCH (08:04)
--- NOTE | 2017-02-26 12:20 | Event Note ---
Date of Encounter: 02/26/17 Time of Encounter: 12:20 PCR - Left TKR POD#1 Cormorbidities: CAD, stents, HTN, Tobacco use Allergy to Darvocet, ok to Take Oxycodone. . Patient seen at bedside. Complaining of N/V. Pain control: yes Participating in PT. All questions and concerns addressed. Educated on use of incentive spirometer, ambulation, and hydration. Patient educated on post-operative restrictions and care. Addressed: Held Dexter, started Oxycodone to see if she is reacting to Dexter. Oxycodone started at 1-2 tab q 4-6 hours. D/C plan:. HH likely tomorrow AM once vomitting controlled.
[2017-02-26] MEDS ORDERED: *HR* OxyCODONE Immed Rel 5 MG TABLET PO PRN ×2 (13:04→16:55)
[2017-02-26] MEDS: *HR* OxyCODONE Immed Rel 5 MG TABLET PO PRN (19:47)
[2017-02-27] MEDS: *HR* OxyCODONE Immed Rel 5 MG TABLET PO PRN ×2 (03:45→08:18)
[2017-02-27 06:07] LABS: Hematocrit 31.6 % (35.3-44.9); Hemoglobin 10.1 g/dL (11.5-15.4)
[2017-02-27 06:21] LABS: BUN/Creatinine Ratio 25 (6-26); Blood Urea Nitrogen 22 mg/dL (7-20); Calcium 9.3 mg/dL (8.6-10.8); Carbon Dioxide 25 mEq/L (19-29); Chloride 107 mEq/L (98-109); Glucose 116 mg/dL (70-99); Osmolality,Calculated 288 (280-300); Potassium 4.7 mEq/L (3.5-4.5); Sodium 137 mEq/L (136-145); eGFR For African Americans > 60 (> 60); eGFR For Non-African Americans > 60 (> 60)
--- NOTE | 2017-02-27 06:35 | Orthopedics Progress Note ---
Date of Encounter: 02/27/17 Time of Encounter: 06:35 - Assessment and Plan (1) CAD (coronary artery disease) Current Visit: No Status: Chronic Qualifiers: Coronary Disease-Associated Artery/Lesion type: [place] artery [place] vs. transplanted heart: [place] heart Associated angina: without angina Qualified Code(s): I25.10 - Atherosclerotic heart disease of [place] coronary artery without angina pectoris (2) HTN (hypertension) Current Visit: No Status: Chronic Qualifiers: Hypertension type: unspecified Qualified Code(s): I10 - Essential (primary ) hypertension (3) Tobacco abuse Current Visit: No Status: Chronic (4) Arthritis of knee, left Current Visit: Yes Status: Chronic (5) Status post total knee replacement, left Current Visit: Yes Status: Acute (6) CAD (coronary artery disease) Current Visit: Yes Status: Chronic Qualifiers: Coronary Disease-Associated Artery/Lesion type: unspecified vessel or lesion type [place] vs. transplanted heart: [place] heart Associated angina: without angina Qualified Code(s): I25.10 - Atherosclerotic heart disease of [place] coronary artery without angina pectoris Subjective Interval history: Patient was seen this morning doing well without complaints. Afebrile vital signs stable. Operative extremity: Neurovascularly intact Dressing clean dry and intact Calves nontender Assessment and plan: Continue with postoperative care Discharge today held secondary to pain Objective Vital signs: Vital Signs Temp Pulse Resp BP Pulse Ox 02/26/17 22:53 98.4 F 89 16 124/72 96 02/26/17 19:45 98.1 F 86 20 135/74 99 02/26/17 15:04 97.3 F L 67 15 124/64 97 02/26/17 06:51 97.6 F 74 15 102/63 96 Intake and Output 02/26/17 02/26/17 02/27/17 15:59 23:59 07:59 Intake Total 240 / 240 Output Total 0 / 0 Balance 240 / 240 0 / 0 Intake: Oral 240 / 240 Output: Urine 0 / 0 Other: Meal Lunch Percent of Meal Consumed 50% # Voids 1 - Labs CBC & BMP: 02/27/17 05:52 02/27/17 05:52 Labs: Abnormal lab results Hgb 10.1 g/dL (11.5-15.4) L 02/27/17 05:52 Hct 31.6 % (35.3-44.9) L 02/27/17 05:52 Potassium 4.7 mEq/L (3.5-4.5) H 02/27/17 05:52 BUN 22 mg/dL (7-20) H 02/27/17 05:52 Glucose 116 mg/dL (70-99) H 02/27/17 05:52 - VTE Documentation of Mechanical Device: Venous foot pump, device Consult Discharge Plan - Plan Additional Instructions: Discharge Instructions: Total Knee Replacement Please call [facility] ([phone]), your Primary Care Physician, or report to the Emergency Room if you have any of the following symptoms: Nausea, vomiting, fever greater that 101.5, swelling, chest pain, shortness of breath, increased pain/redness/drainage/odor for your incision site, numbness/ tingling, or any other concerning symptoms. ACTIVITY:Weight-bearing as tolerated. You may progress off support (crutches or walker) as tolerated. MEDICATIONS: Upon discharge resume your home medications. Take all the medications as prescribed. Take a stool softener if taking narcotic pain medications. Stool softeners are only effective if you drink enough fluids. Drink 6-8 glass of water or fluids a day, unless this is not allowed for another health problem. Despite using stool softeners, if you haven't had a bowel movement in 3 days, please switch to a gentle laxative. Gentle laxatives are sold over the counter. You should have a bowel movement within 24 hours, if not call the office. You will be discharged from the hospital with a prescription for pain medication. You are encouraged to decrease the use of narcotic pain medication as tolerated. Should you require a refill, please call the office. [facility] prescribes narcotic pain medication for only 4-6 weeks after surgery. If you require pain medication beyond this time period, you may be referred to your Primary Care Physician or to the Pain Clinic for further evaluation. Plan ahead for refills on pain medication as many narcotics either need to be picked up at the office or mailed. It is best to call 48-72 hours in advance of needing a prescription refill so you don't run out of medication. To help control the post-operative pain, you may take NSAIDs (Aleve,Advil, Motrin, Ibuprofen, Naprosyn) or Tylenol as prescribed on the bottle in addition to the pain medication. ANTICOAGULATION (blood thinners): Continue your Aspirin, Lovenox or Coumadin as prescribed to help prevent a blood clot in the leg or in the lungs. As long as your incision remains dry and you tolerate the NSAIDs (Aleve, Advil, Motrin, ibuprofen, naprosyn), it is OK to use the NSAIDS while you are taking your anticoagulation medication. Should your incision start to drain, stop the NSAID and contact our office. Common symptoms of blood clot in the legs include: localized pain, swelling, calf tenderness, redness or discoloration of the skin. Blood clot in the lung symptoms include: shortness of breath, rapid pulse, sweating, and chest pain that worsens with deep breathing, coughing up blood, lightheadedness, feelings of anxiety. If you experience any of these symptoms notify your physician immediately, go to the emergency room, or if having trouble breathing, call 911. WOUND CARE: Leave the dressing on for 7 to 10days. You may change the dressing if it becomes saturated greater than 50%. Do not get the dressing wet at anytime. Wash your hands with antibacterial soap, rinse and dry prior to any wound care. If you have heather the visiting nurse or rehab facility can remove the stapes 10-14 days after surgery and place steri-strips across the wound. Leave the steri-strips in place until they fall off on their won. You may let water from the shower run on top of the steri-strips. If you do not have a visiting nurse or rehab facility, you will need to return to the office at 10-14 days for the heather to be removed. If you have itching or redness around the dressing call the office. FOLLOW-UP: Please follow up with your surgeon in the orthopedic clinic in 4 weeks from the day of surgery. If you have heather that need to be removed, you will need to come back to the office in 10-14 days from the day of surgery. Referrals: Ramiro Gillette, CERTIFIED OPHTHALMIC MEDICAL TECHNICIAN [Primary Care Provider] -
[2017-02-27 08:11] VITALS: BP 142/76
[2017-02-27] MEDS: Multivit/Ca/Min/Fe/FA 1 TAB TABLET PO SCH (08:17)
[2017-02-27] MEDS: Isosorbide MONOnitrate (24 HR) 30 MG TAB.ER.24H PO SCH (08:17)
[2017-02-27] MEDS: Diltiazem CD (24hr) 120 MG CAPSULE PO SCH (08:17)
[2017-02-27] MEDS: Aspirin Enteric Coated 81 MG Tablet PO SCH (08:18)
[2017-03-03] MEDS ORDERED: Alendronate Sodium [Fosamax] 70 MG PO SCH (10:38)
== END 2017-02-27 11:50 | disposition home health service (06) | DRG 470 ==
LOC: SAMDAY 08:40 → 3NENU 12:18
PROVIDERS: ADMIT Orthopaedic Surgery; ATTEND Orthopaedic Surgery

== ENCOUNTER 2022-01-08 11:36 | Inpatient (IN) ==
[2022-01-08] MEDS ORDERED: Ondansetron 4 MG/2 ML VIAL IVP ONE (13:57)
[2022-01-08] MEDS ORDERED: *HR* FentaNYL (PF) 100 MCG/2 ML VIAL IVP ONE (13:57)
[2022-01-08 14:50] LABS: Basophils # 0.1 K/mcL (0.0-0.2); Basophils % 0.3 %; Eosinophils # 0.1 K/mcL (0.0-0.6); Eosinophils % 0.4 %; Hematocrit 45.3 % (35.3-44.9); Hemoglobin 14.6 g/dL (11.5-15.4); Immature Granulocytes % 0.8 % (0-4); Lymphocytes % 10.1 %; Mean Corpuscular HGB Conc 32.2 g/dL (31.6-35.5); Mean Corpuscular Hemoglobin 30.3 pg (28.0-33.3); Mean Platelet Volume 12.7 fL (9.4-12.4); Monocytes # 1.6 K/mcL (0.0-1.3); Platelet Count 264 K/mcL (140-400); Red Blood Count 4.82 M/mcL (3.82-4.97); Red Cell Distribution Width 12.3 % (11.5-14.5); Segmented Neutrophils % 80.4 %; White Blood Count 19.9 K/mcL (4.3-11.1)
[2022-01-08] MEDS ORDERED: *HR* HYDROmorphone (PF) 1 MG/ML SYRINGE IVP ONE ×2 (14:55→19:37)
[2022-01-08 15:02] LABS: Prothrombin Time 10.8 Seconds (9.4-12.1)
[2022-01-08 15:04] LABS: Activated Partial Thrombo Time 27.5 Seconds (26.0-36.0)
[2022-01-08] MEDS ORDERED: Morphine Sulfate 2 MG/ML SYRINGE IVP ONE (15:07)
[2022-01-08 15:08] LABS: BUN/Creatinine Ratio 26 (6-26); Blood Urea Nitrogen 20 mg/dL (8-23); Calcium 10.2 mg/dL (8.6-10.3); Carbon Dioxide 19 mEq/L (23-29); Chloride 105 mEq/L (98-107); Glucose 94 mg/dL (70-105); Osmolality,Calculated 280 (280-300); Potassium 4.5 mEq/L (3.5-5.1); Sodium 134 mEq/L (136-145); eGFR For African Americans > 60 (> 60); eGFR For Non-African Americans > 60 (> 60)
[2022-01-08] MEDS ORDERED: Tdap (Boostrix) Vaccine 0.5 ML SYRINGE IM ONE (15:12)
[2022-01-08] MEDS ORDERED: Naloxone 0.4 MG/ML INJ IVP PRN (17:15)
[2022-01-08 18:12] LABS: Influenza A PCR Negative (Negative); Influenza B PCR Negative (Negative); Resp. Syncytial Virus PCR Negative (Negative); SARS-CoV-2 by PCR (In House) Negative (Negative)
[2022-01-08 18:29] LABS: Bacteria,Urine Few per hpf (None-Few); Bilirubin,Urine Negative (Negative); Blood,Urine Small (Negative); Clarity,Urine Clear (Clear); Color,Urine Light-Yellow (Yellow); Glucose,Urine (UA) Normal (Normal); Hyaline Casts,Urine Few per lpf (None Seen); Ketones,Urine Trace mg/dL (Negative); Leukocyte Esterase,Urine Negative (Negative); Mucus,Urine Few per lpf (None-Few); Nitrite,Urine Negative (Negative); PH,Urine 5.5 pH Units (5.0-8.0); Protein,Urine Trace mg/dL (Neg-Trace); Specific Gravity,Urine 1.023 (1.010-1.025); Squamous Epithelial Cell,Urine Few per hpf (None-Few); Urobilinogen,Urine Normal (Normal)
[2022-01-08] MEDS: carvediloL 6.25 MG TABLET PO SCH (22:21)
[2022-01-08] MEDS: *HR* Heparin 5,000 UNIT/ML VIAL SQ SCH (22:21)
[2022-01-09] MEDS: *HR* HYDROcodone/Acet 5/325 mg TABLET PO PRN ×2 (01:56→09:18)
[2022-01-09] MEDS: *HR* Heparin 5,000 UNIT/ML VIAL SQ SCH (05:17)
[2022-01-09 06:00] LABS: Basophils % 0.2 %; Eosinophils # 0.1 K/mcL (0.0-0.6); Eosinophils % 1.2 %; Hematocrit 45.8 % (35.3-44.9); Hemoglobin 14.7 g/dL (11.5-15.4); Immature Granulocytes % 0.4 % (0-4); Lymphocytes # 1.6 K/mcL (0.6-4.6); Lymphocytes % 13.6 %; Mean Corpuscular HGB Conc 32.1 g/dL (31.6-35.5); Mean Corpuscular Hemoglobin 29.9 pg (28.0-33.3); Mean Corpuscular Volume 93.3 fL (83.0-100.0); Mean Platelet Volume 12.3 fL (9.4-12.4); Monocytes # 1.3 K/mcL (0.0-1.3); Monocytes % 11.3 %; Neutrophils # 8.4 K/mcL (1.6-8.9); Platelet Count 227 K/mcL (140-400); Red Blood Count 4.91 M/mcL (3.82-4.97); Red Cell Distribution Width 12.7 % (11.5-14.5); Segmented Neutrophils % 73.3 %; White Blood Count 11.4 K/mcL (4.3-11.1)
[2022-01-09 06:27] LABS: BUN/Creatinine Ratio 28 (6-26); Blood Urea Nitrogen 25 mg/dL (8-23); Calcium 10.2 mg/dL (8.6-10.3); Carbon Dioxide 25 mEq/L (23-29); Chloride 106 mEq/L (98-107); Glucose 115 mg/dL (70-105); Osmolality,Calculated 289 (280-300); Potassium 4.8 mEq/L (3.5-5.1); Sodium 137 mEq/L (136-145); eGFR For African Americans > 60 (> 60); eGFR For Non-African Americans > 60 (> 60)
[2022-01-09] MEDS ORDERED: Isosorbide MONOnitrate (24 HR) 30 MG TAB.ER.24H PO SCH (09:00)
[2022-01-09] MEDS: carvediloL 6.25 MG TABLET PO SCH (09:18)
[2022-01-09] MEDS ORDERED: CeFAZolin Syr 2,000MG/20 ML 2,000 MG/20 ML SYRINGE IVPB ONE ×2 (12:12→12:45)
[2022-01-09] MEDS ORDERED: Ringers Solution, Lactated 1,000 ML IVC SCH ×2 (12:15→16:58)
[2022-01-09] MEDS ORDERED: Famotidine 20 MG/2 ML VIAL IVP ONE (12:27)
[2022-01-09] MEDS ORDERED: Acetaminophen IV 1,000 MG/100 ML BAG IVPB ONE (12:27)
[2022-01-09] MEDS ORDERED: *HR* HYDROmorphone PF 0.5 MG/0.5 ML SYRINGE IVP PRN (12:34)
[2022-01-09] MEDS ORDERED: *HR* HYDROcodone/Acet 5/325 mg TABLET PO ONE ×2 (14:00→14:15)
[2022-01-09] MEDS ORDERED: Lidocaine HCL 4 ML Topical Solution (Laryng-O-Jet Kit Sterile Pak) TP ONE (14:04)
[2022-01-09] MEDS ORDERED: *HR* Succinylcholine 200 MG/10 ML VIAL IVP ONE (14:04)
[2022-01-09] MEDS ORDERED: Ondansetron 4 MG/2 ML VIAL ONE (14:04)
[2022-01-09] MEDS ORDERED: *HR* Propofol 200 MG/20 ML VIAL IVP ONE (14:04)
[2022-01-09] MEDS ORDERED: *HR* FentaNYL (PF) 100 MCG/2 ML VIAL ONE ×2 (14:04→15:29)
[2022-01-09] MEDS ORDERED: Lidocaine -MPF 2% 5 ML VIAL ONE (14:04)
[2022-01-09] MEDS ORDERED: TOTAL JOINT MIXTURE (100ML) INTRAART ONE (15:00)
[2022-01-09] MEDS ORDERED: Tranexamic Acid 1,000 MG/10 ML VIAL ONE ×2 (15:21)
[2022-01-09] MEDS ORDERED: EPHEDrine 50 MG/ML VIAL ONE (15:24)
[2022-01-09] MEDS ORDERED: Vancomycin 1,000 MG VIAL ONE (15:56)
[2022-01-09] MEDS ORDERED: MOM Conc 10 ML UD.LIQ PO PRN (16:58)
[2022-01-09] MEDS ORDERED: Sennosides 8.6 MG TABLET PO PRN (16:58)
[2022-01-09] MEDS ORDERED: Ondansetron 4 MG/2 ML VIAL IVP PRN (16:58)
[2022-01-09] MEDS ORDERED: Naloxone 0.4 MG/ML INJ IVP PRN (16:58)
[2022-01-09] MEDS ORDERED: *HR* Promethazine 25 MG/ML VIAL IM PRN (16:58)
[2022-01-09] MEDS: Ascorbic Acid 500 MG TABLET PO SCH (17:32)
[2022-01-09] MEDS: CeFAZolin 2 GM/120 ML BAG IVPB SCH (22:54)
[2022-01-10 01:41] LABS: Hematocrit 41.8 % (35.3-44.9); Immature Granulocytes % 0.7 % (0-4); Lymphocytes # 0.6 K/mcL (0.6-4.6); Lymphocytes % 3.9 %; Mean Corpuscular HGB Conc 30.9 g/dL (31.6-35.5); Mean Corpuscular Volume 97.2 fL (83.0-100.0); Mean Platelet Volume 12.3 fL (9.4-12.4); Monocytes # 0.6 K/mcL (0.0-1.3); Monocytes % 3.9 %; Neutrophils # 13.1 K/mcL (1.6-8.9); Platelet Count 200 K/mcL (140-400); Red Cell Distribution Width 12.5 % (11.5-14.5); Segmented Neutrophils % 91.5 %; White Blood Count 14.3 K/mcL (4.3-11.1)
[2022-01-10 01:44] LABS: Hemoglobin 12.9 g/dL (11.5-15.4)
[2022-01-10 02:00] LABS: Calcium 9.2 mg/dL (8.6-10.3); Potassium 4.8 mEq/L (3.5-5.1)
[2022-01-10] MEDS: Multivit/Ca/Min/Fe/FA 1 TAB TABLET PO SCH (09:02)
[2022-01-10] MEDS: HYDROcodone BIT/Homatropine 5 MG TABLET PO PRN ×3 (09:03→22:37)
[2022-01-10] MEDS: Ascorbic Acid 500 MG TABLET PO SCH ×2 (09:03→15:12)
[2022-01-10] MEDS: CeFAZolin 2 GM/120 ML BAG IVPB SCH (09:10)
[2022-01-10] MEDS: Aspirin Enteric Coated 81 MG Tablet PO SCH (21:33)
[2022-01-10] MEDS: Menthol 1 EACH LOZENGE PO PRN (23:45)
[2022-01-11] MEDS ORDERED: *HR* HYDROmorphone (PF) 1 MG/ML SYRINGE IVP ONE (00:21)
[2022-01-11 05:58] LABS: Basophils % 0.3 %; Eosinophils # 0.1 K/mcL (0.0-0.6); Eosinophils % 0.7 %; Hematocrit 43.8 % (35.3-44.9); Hemoglobin 13.9 g/dL (11.5-15.4); Immature Granulocytes % 0.7 % (0-4); Lymphocytes % 17.5 %; Mean Corpuscular HGB Conc 31.7 g/dL (31.6-35.5); Mean Corpuscular Hemoglobin 30.2 pg (28.0-33.3); Mean Platelet Volume 12.3 fL (9.4-12.4); Monocytes % 8.9 %; Neutrophils # 8.4 K/mcL (1.6-8.9); Platelet Count 185 K/mcL (140-400); Red Blood Count 4.61 M/mcL (3.82-4.97); Red Cell Distribution Width 12.7 % (11.5-14.5); Segmented Neutrophils % 71.9 %; White Blood Count 11.7 K/mcL (4.3-11.1)
[2022-01-11 06:17] LABS: BUN/Creatinine Ratio 27 (6-26); Blood Urea Nitrogen 25 mg/dL (8-23); Calcium 10.1 mg/dL (8.6-10.3); Carbon Dioxide 26 mEq/L (23-29); Chloride 108 mEq/L (98-107); Glucose 116 mg/dL (70-105); Osmolality,Calculated 293 (280-300); Potassium 4.1 mEq/L (3.5-5.1); Sodium 139 mEq/L (136-145); eGFR For African Americans > 60 (> 60); eGFR For Non-African Americans 60 (> 60)
[2022-01-11] MEDS: Multivit/Ca/Min/Fe/FA 1 TAB TABLET PO SCH (09:39)
[2022-01-11] MEDS: Aspirin Enteric Coated 81 MG Tablet PO SCH ×2 (09:39→21:09)
[2022-01-11] MEDS: HYDROcodone BIT/Homatropine 5 MG TABLET PO PRN (09:40)
[2022-01-11] MEDS: Ascorbic Acid 500 MG TABLET PO SCH ×2 (09:42→16:48)
[2022-01-11] MEDS ORDERED: tiZANidine 4 MG TABLET PO PRN (09:51)
[2022-01-11] MEDS: Sennosides 8.6 MG TABLET PO SCH ×2 (12:17→21:09)
[2022-01-11] MEDS: polyethylene glycoL 3350 17 GM POWD.PACK PO SCH (12:17)
[2022-01-11] MEDS: Menthol 1 EACH LOZENGE PO PRN (21:09)
[2022-01-12 00:07] VITALS: O2SAT 98
[2022-01-12] MEDS: HYDROcodone BIT/Homatropine 5 MG TABLET PO PRN (00:30)
[2022-01-12 05:34] VITALS: BP 150/90; PULSE 83; TEMP 98.2
[2022-01-12 05:59] LABS: Basophils % 0.4 %; Eosinophils # 0.1 K/mcL (0.0-0.6); Eosinophils % 1.2 %; Hematocrit 43.3 % (35.3-44.9); Hemoglobin 13.5 g/dL (11.5-15.4); Immature Granulocytes % 0.5 % (0-4); Lymphocytes # 2.4 K/mcL (0.6-4.6); Lymphocytes % 21.7 %; Mean Corpuscular HGB Conc 31.2 g/dL (31.6-35.5); Mean Corpuscular Hemoglobin 29.8 pg (28.0-33.3); Mean Corpuscular Volume 95.6 fL (83.0-100.0); Mean Platelet Volume 12.2 fL (9.4-12.4); Monocytes # 1.2 K/mcL (0.0-1.3); Monocytes % 10.3 %; Neutrophils # 7.3 K/mcL (1.6-8.9); Platelet Count 214 K/mcL (140-400); Red Blood Count 4.53 M/mcL (3.82-4.97); Red Cell Distribution Width 12.9 % (11.5-14.5); Segmented Neutrophils % 65.9 %; White Blood Count 11.1 K/mcL (4.3-11.1)
[2022-01-12 06:20] LABS: BUN/Creatinine Ratio 30 (6-26); Blood Urea Nitrogen 19 mg/dL (8-23); Calcium 10.3 mg/dL (8.6-10.3); Carbon Dioxide 25 mEq/L (23-29); Chloride 107 mEq/L (98-107); Glucose 107 mg/dL (70-105); Magnesium 1.9 mg/dL (1.6-2.6); Osmolality,Calculated 289 (280-300); Potassium 4.6 mEq/L (3.5-5.1); Sodium 138 mEq/L (136-145); eGFR For African Americans > 60 (> 60); eGFR For Non-African Americans > 60 (> 60)
[2022-01-12] MEDS: Aspirin Enteric Coated 81 MG Tablet PO SCH (10:04)
[2022-01-12] MEDS: Sennosides 8.6 MG TABLET PO SCH (10:04)
[2022-01-12] MEDS: Ascorbic Acid 500 MG TABLET PO SCH (10:05)
[2022-01-12] MEDS: Multivit/Ca/Min/Fe/FA 1 TAB TABLET PO SCH (10:05)
[2022-01-12] MEDS: polyethylene glycoL 3350 17 GM POWD.PACK PO SCH (10:05)
== END 2022-01-12 15:30 | disposition home health service (06) | DRG 522 ==
LOC: EMEROOARM 11:36 → 4WAOSI 01-09 07:59 → SUATTDRO 01-09 07:59 → 4WAOSI 01-09 08:42
PROVIDERS: ADMIT Internal Medicine; ATTEND Pharmacist